=== PATIENT | male | born 1950 | race Hispanic/Latino ===

== ENCOUNTER 2016-08-10 18:20 | Emergency (ER) | payer MEDICARE, OTHER ==
[~2016-08-10] VITALS: Ht 170.2 cm; Wt 108.6 kg
[~2016-08-10 18:20] MED LIST: AMLO10TA5 PO; ASP81TEC PO; Co Q10 PO; LOP100 PO; PEG2480S PO; ProAirHFA INH; TRIA1CAP PO; VIAG25T PO
[2016-08-10 18:23] VITALS: BP 136/74; PULSE 73; RESP 17; O2SAT 95
--- NOTE | 2016-08-10 19:49 | DRSVH ---
PROCEDURE: X-RAY LEFT WRIST COMPLETE, MINIMUM THREE VIEWS ([id number]) INDICATIONS: pain/fall TECHNIQUE: 4 views of the wrist were acquired. COMPARISON: None. FINDINGS: Bones: A small bony fragment at the anterior aspect of the distal radius is present, possibly indicat ing a small chip fracture of uncertain acuity. No suspicious bony lesions. Scaphoid view: Negative Soft tissues: No suspicious soft tissue calcifications. IMPRESSION: Possible small chip fracture adjacent to the anterior aspect of the distal radius, of unc ertain acuity. Dictated by: Avila Castano M.D. on 08/10/2016 at 19:47 Approved by: Avila Castano M.D. on 08/10/2016 at 19:48
--- NOTE | 2016-08-10 21:11 | ED.REPORT ---
HPI-Hand Prob/Inj Date of Service Aug 10, 2016 ED Provider: Roderick Waite MD A right-handed 66 year old male with a history of hypertension and diabetes presents to the ED complaining of left wrist pain. The pt slipped on ice this morning and landed on his left wrist. He is now experiencing pain and swelling. The pt denies loss of consciousness or other trauma. Nursing Notes Stated Complaint: LEFT WRIST PAIN/FELL ON ICE Chief Complaint: Extremity Trauma Nursing Notes Reviewed: Yes Allergies: Coded Allergies: oxycodone (Verified Allergy, Unknown, SHORTNESS OF BREATH, DIZZINESS, ) Scheduled ([Co Q10]) 2 TAB PO DAILY Albuterol-Expunged Drug, Do Not Renew! (ProAir HFA-Expunged Drug, Do Not Renew! ) 200 Puff/8.5 Gm Hfa.aer.ad PUFF INH as directed For Wheezing or Shortness of Breath AmLODIPine-Expunged Drug, Do Not Renew! (AmLODIPine-Expunged Drug, Do Not Renew! ) 10 Mg Tablet 10 MG PO DAILY Aspirin-Expunged Drug, Do Not Renew! (Aspirin EC-Expunged Drug, Do Not Renew!) 81 Mg Tablet 81 MG PO DAILY DO NOT CRUSH Metoprolol Tart-Expunged Drug, Do Not Renew! (Metoprolol Tart-Expunged Drug, Do Not Renew!) 100 Mg Tablet 100 MG PO BID Sildenafil-Expunged Drug, Do Not Renew! (Viagra-Expunged Drug, Do Not Renew!) 25 Mg Tablet 25 MG PO PRN Triamterene/HCTZ-Expunged Drug, Do Not Renew! (Triamterene/HCTZ 37.5/25-Expunged ,Do Not Renw) 1 Cap Capsule 1 CAP PO DAILY Miscellaneous Medications Peg 3350-Bowel 2,Two Part Prep (Suclear Bowel Prep Kit) 2,480 Ml Soln.rc.sq 2, 480 ML PO day prior to colonoscopy General Time Seen by Provider: 21:07 Chief Complaint Other (Left wrist injury) Hx Obtained From: Patient Arrived By: Walk-in Onset Occurred: 9 - 12 hours ago Symptom Duration: Since onset Recent Healthcare: No recent doctor visit, No recent hospitalization Similar Sx Previous: No Past Medical History Past Medical History pneumonia hypertension asthma diabetes Past Surgical History shoulder Smoking History Former Smoker (quit 13 years ago) Ambulatory Status Independent Review of Systems Constitutional: Denies: Fever Musculoskeletal: Reports: Extremity pain (left wrist), Denies: Back pain, Neck pain Neurologic: Denies: Change LOC, Headache Complete sys rev & neg: except as marked. Physical Exam Initial Vital Signs Vital Signs (First) Date Time Temp Pulse Resp B/P Pulse Ox O2 Delivery O2 Flow Rate FiO2 08/10/16 18:23 73 17 136/74 95 Room Air Initial VS: Reviewed, Vital signs normal Wrist / Hand: Neurologic intact, Vascular intact ecchymotic tenderness of the left wrist point tenderness over the distal radius General/Constitutional: Awake, Alert Skin: Atraumatic, Color NL, No rash, Warm, Dry Neurologic: Oriented X3, Speech NL, No motor deficits, No sensory deficits Head / Eyes: Atraumatic, Normocephalic, PERRL, EOMI ENT: Atraumatic, Airway patent, Mucous membranes moist Neck: Atraumatic, Supple, Full range of motion Respiratory / Chest: Atraumatic, Breath sounds NL, Breath sounds = bilat, No respiratory distress Cardiovascular: Heart rate NL, Regular rhythm, Heart sounds NL Abdomen: Atraumatic, Soft, Non-tender Back: Atraumatic, Full range of motion Upper Extremity / MS: Atraumatic, Full range of motion Lower Extremity / Pelvis / MS: Atraumatic, Full range of motion Psychiatric: Affect NL, Mood NL Interpretation & Diagnostics X-Ray Interpretation Xray Interpretation: IMPRESSION: Possible small chip fracture adjacent to the anterior aspect of the distal radius, of uncertain acuity. Dictated by: Avila Castano M.D. on 08/10/2016 at 19:47 Approved by: Avila Castano M.D. on 08/10/2016 at 19:48 X-Ray Ordered: Wrist left Interpretation / Wet Read by: Interpret - Radiologist Procedures Splint Application - Fx Mgt Time: 21:19 Procedure Performed by: Decal Cutter, Under my direct supervis Precise Anatomic Location: left wrist Type of Immobilization: Ortho-glass Definitive Fracture Care: Splint, Performed by me Post-Procedure / Complications: Cap refill normal, Post splint vascular nl, Post splint neuro nl, Condition improved, Tolerated procedure well, Patient stable Re-Eval/Medical Decision Med Decision/Clinical Course 66-year-old male who fell on his outstretched left hand. There is a small chip fracture of the distal radius noted on the x-ray of uncertain acuity, but it does correspond with the area of tenderness and ecchymosis. He was splinted and given a prepack of hydrocodone/APAP. He will follow-up with his primary doctor for casting. Source of Hx: Old records Re-Evaluation/Progress : Time of Eval: 22:37 Patient Status: Condition improved Re-Evaluation/Progress Note: Pt rechecked, who is comfortable. He is informed of his radiology results and diagnosis. The plan for discharge is discussed. The pt understands and agrees with the plan. All questions are addressed at this time. Counseled Regarding: Diagnosis, Lab results, Need for follow-up, When/why to return to ED Discharge & Departure Primary Impression: Distal radius fracture, left Encounter type: initial encounter Fracture type: closed Fracture morphology : unspecified fracture morphology Qualified Code: S52.502A - Unspecified fracture of the lower end of left radius, initial encounter for closed fracture Disposition: Home Discharge Condition All VS Reviewed: Yes Condition: Stable Patient Instructions: Arm Fracture in Adults (ED), Splint Care (ED) Additional Instructions: Ice and elevation. Hydrocodone/acetaminophen 5/325, one to 2 pills every 4-6 hours as needed for severe pain, #10 dispensed. Follow-up with your regular doctor for casting. Please see splint care instructions. Referrals: Cece Vee MD (PCP) Scribe Attestation Portions of this note were transcribed by Alicia Sharma. I, Dr. Waite personally performed the history, physical exam and medical decision-making; I reviewed and confirmed the accuracy of the information in the transcribed note. Signed by: Alex Bueno, 08/10/2016 and 2238. copies to: Cece Vee MD, Howard L MD Aug 10, 2016 21:11 ALICIA SHARMA Aug 10, 2016 21:24
[2016-08-10] MEDS ORDERED: _HYDROcodone/APAP 5-325 mg Tablet PO PRN (21:20)
== END 2016-08-10 22:50 | disposition home or self-care (01) ==
LOC: SED 18:20
DX: S52.502A Unspecified fracture of the lower end of left radius, initial encounter for closed fracture (principal); W00.9XXA Unspecified fall due to ice and snow, initial encounter; Y93.9 Activity, unspecified; Y92.009 Unspecified place in unspecified non-institutional (private) residence as the place of occurrence of the external cause; Y99.8 Other external cause status; I10 Essential (primary) hypertension; J45.909 Unspecified asthma, uncomplicated; E11.9 Type 2 diabetes mellitus without complications; Z79.82 Long term (current) use of aspirin; Z87.01 Personal history of pneumonia (recurrent); Z88.5 Allergy status to narcotic agent; Z87.891 Personal history of nicotine dependence